=== PATIENT | female | born 1980 | race Caucasian/White ===

== ENCOUNTER 2019-05-16 18:05 | Inpatient (IN) | payer BC ==
[~2019-05-16] VITALS: Ht 165.1 cm; Wt 74.8 kg
[2019-05-16 18:05] VITALS: BP_SYST 138
[2019-05-16] MEDS ORDERED: LORazepam 2 MG/ML VIAL IVP ONE (18:45)
[2019-05-16] MEDS ORDERED: MAGNESIUM SULFATE 4 GM in D5W 250 ML IV ONE (19:00)
[2019-05-16 19:16] LABS: BASOPHILS # (AUTO) 0.1 K/uL (0.0-0.2); BASOPHILS % (AUTO) 0.5 % (0.0-2.0); EOSINOPHILS % (AUTO) 0.4 % (0.0-4.0); HEMATOCRIT 35.2 % (36-48); HEMOGLOBIN 11.8 g/dL (12.0-16.0); LYMPHOCYTES % (AUTO) 19.9 % (20.5-51.5); MEAN CORPUSCULAR HEMOGLOBIN 29 pg (27-31); MEAN CORPUSCULAR HGB CONC 34 % (32-36); MEAN CORPUSCULAR VOLUME 87 fL (79.0-98.0); MONOCYTES # (AUTO) 0.5 K/uL (0.0-1.0); MONOCYTES % (AUTO) 5.1 % (1.7-9.3); NEUTROPHILS # (AUTO) 7.5 K/uL (1.8-7.7); NEUTROPHILS % (AUTO) 74.1 % (40.0-70.0); PLATELET COUNT (AUTO) 275 K/uL (130-430); RED BLOOD CELL COUNT(AUTO) 4.07 MIL/uL (4.2-6.2); RED CELL DISTRIBUTION WIDTH 16.4 % (9.0-15.0); WHITE BLOOD COUNT (AUTO) 10.2 K/uL (4.8-10.8)
[2019-05-16 19:25] LABS: CALCIUM 7.9 mg/dL (8.4-11.0); CREATININE 0.84 mg/dL (0.55-1.30); POTASSIUM 3.7 mmol/L (3.5-5.1)
[2019-05-16 19:31] LABS: ALBUMIN 3.2 g/dL (3.4-4.8); TOTAL BILIRUBIN 0.2 mg/dL (0.0-1.0)
[2019-05-16] MEDS ORDERED: MAGNESIUM SULFATE 1 GM/2 ML VIAL ONE (19:32)
[2019-05-16 19:39] LABS: BILIRUBIN,URINE NEGATIVE (NEGATIVE); BLOOD, URINE 2+ (NEGATIVE); CLARITY/URINE CLEAR (CLEAR); COLOR,URINE YELLOW (YELLOW); GLUCOSE,URINE NEGATIVE (NEGATIVE); KETONES,URINE NEGATIVE (NEGATIVE); LEUKOCYTE ESTERASE ,URINE TRACE (NEGATIVE); NITRITE, URINE NEGATIVE (NEGATIVE); PROTEIN URINE 2+ (NEGATIVE); UROBILINOGEN,URINE 0.2 (0.2-1.0)
[2019-05-16 19:52] LABS: WBC,URINE 20-50 /HPF (0-3)
[2019-05-16 19:53] LABS: BACTERIA,URINE RARE /HPF (None Seen); MUCUS,URINE None Seen /LPF (None Seen)
[2019-05-16] MEDS ORDERED: CHOL100038 PO (20:32)
[2019-05-16] MEDS ORDERED: FERR256T PO (20:32)
[2019-05-16] MEDS ORDERED: PREN-128 PO (20:32)
[2019-05-16] MEDS ORDERED: SERT50TA PO (20:32)
[2019-05-16] MEDS ORDERED: ACETAMINOPHEN 325 MG TABLET PO ONE (21:30)
[2019-05-16] MEDS ORDERED: LR 500 ML IV SCH (21:45)
[2019-05-16] MEDS ORDERED: ACETAMINOPHEN 325 MG TABLET PO PRN (21:45)
[2019-05-16] MEDS ORDERED: MAGNESIUM SULFATE IN WATER 500 ML IV SCH (21:45)
[2019-05-16] MEDS ORDERED: NIFEDIPINE 30 MG TAB.ER.24 PO SCH (22:00)
[2019-05-17] VITALS (14 sets, daily range): BP systolic 109–138
[2019-05-17] MEDS ORDERED: MAGNESIUM SULFATE IN WATER 500 ML IV ONE (00:52)
[2019-05-17] MEDS: MAGNESIUM SULFATE IN WATER 500 ML IV SCH ×2 (01:16→11:15)
[2019-05-17] MEDS ORDERED: FIORCET PO ONE (08:15)
[2019-05-17] MEDS: IBUPROFEN 600 MG TABLET PO PRN ×2 (10:43→17:21)
[2019-05-17] MEDS ORDERED: FAMOTIDINE PF 20 MG/2 ML VIAL IVP ONE (14:15)
[2019-05-17] MEDS ORDERED: CALCIUM CARBONATE 500 MG/ TAB.CHEW PO PRN (14:15)
[2019-05-17] MEDS ORDERED: cefTRIAXone 1 GM IVPB PREMIX 50 ML IV ONE (15:45)
[2019-05-17] MEDS ORDERED: IBUP-1969 PO (18:18)
[2019-05-17] MEDS ORDERED: ACET325T53 PO (18:18)
[2019-05-17] MEDS ORDERED: FAMO1TAB29 PO (18:19)
[2019-05-17] MEDS ORDERED: LR 1,000 ML IV SCH (21:45)
== END 2019-05-17 20:55 | disposition short-term general hospital (02) | DRG 776 ==
LOC: SED 18:05 → OBSVTOIN 22:38 → STU 22:38
PROVIDERS: ADMIT Obstetrics & Gynecology; ATTEND Obstetrics & Gynecology
DX: O14.95 Unspecified pre-eclampsia, complicating the puerperium (principal); O99.345 Other mental disorders complicating the puerperium; F41.9 Anxiety disorder, unspecified; O90.89 Other complications of the puerperium, not elsewhere classified; G43.909 Migraine, unspecified, not intractable, without status migrainosus; O86.20 Urinary tract infection following delivery, unspecified; Z88.8 Allergy status to other drugs, medicaments and biological substances; Z79.899 Other long term (current) drug therapy
CPT/HCPCS: 36415; 80053; 81000-TC; 81002; 85025; 87086; 96365; 96366; 96375; 99285; G0378; J0696; J2060; J3475; J3490; J7060; J7120